=== PATIENT | female | born 1960 | race Two or more races ===

== ENCOUNTER 2024-05-10 17:28 | Emergency (ER) | payer OTHER ==
[~2024-05-10] VITALS: Ht 167.6 cm; Wt 129.3 kg
[2024-05-10] MEDS ORDERED: ACETAMINOPHEN ES 500 MG TABLET ONE (18:02)
[2024-05-10] MEDS: ACETAMINOPHEN ES 500 MG TABLET PO ONE (18:02)
[2024-05-10] MEDS ORDERED: HYDR-4209 PO (19:32)
[2024-05-10] MEDS ORDERED: IBUP-1955 PO (19:32)
[2024-05-10] MEDS ORDERED: ACET-2605 PO (19:32)
[2024-05-10 19:49] VITALS: BP 126/78; TEMP 98.4; O2SAT 99
== END 2024-05-10 19:52 | disposition home or self-care (01) ==
LOC: ER 17:41
DX: S82.832A Other fracture of upper and lower end of left fibula, initial encounter for closed fracture (principal); I10 Essential (primary) hypertension; E11.9 Type 2 diabetes mellitus without complications; W01.198A Fall on same level from slipping, tripping and stumbling with subsequent striking against other object, initial encounter; Y93.89 Activity, other specified; Y92.89 Other specified places as the place of occurrence of the external cause; Y99.8 Other external cause status
CPT/HCPCS: 73590-TC